=== PATIENT | male | born 1935 | race Caucasian/White ===

== ENCOUNTER 2018-02-18 09:40 | Observation (INO) ==
[2018-02-18] MEDS ORDERED: Isovue-370 500 ML INFUS..BTL IV ONE (09:51)
[2018-02-18] MEDS ORDERED: Aspirin 81 MG TAB.CHEW PO ONE (09:51)
[2018-02-18] MEDS ORDERED: 0.9 % Sodium Chloride 500 ML IVC ONE (09:51)
[2018-02-18] MEDS: Nitroglycerin 0.4 MG TAB.SUBL SL ONE ×3 (10:02→11:28)
[2018-02-18 10:44] LABS: Bilirubin,Urine Negative (Negative); Blood,Urine Negative (Negative); Clarity,Urine Clear (Clear); Color,Urine Yellow (Yellow); Glucose,Urine (UA) Normal (Normal); Ketones,Urine Negative (Negative); Leukocyte Esterase,Urine Negative (Negative); Nitrite,Urine Negative (Negative); PH,Urine 6.5 pH Units (5.0-8.0); Protein,Urine 30 mg/dL (Neg-Trace); Specific Gravity,Urine 1.023 (1.010-1.025); Urobilinogen,Urine Normal (Normal)
[2018-02-18 10:46] LABS: Bacteria,Urine None Seen per hpf (None-Few); Hyaline Casts,Urine None Seen per lpf (None-Few); RBC,Urine 0-3 per hpf (0-3); Squamous Epithelial Cell,Urine Moderate per lpf (None-Few); WBC,Urine 0-3 per hpf (0-3)
[2018-02-18 11:13] LABS: Basophils % 0.2 %; Eosinophils # 0.1 K/mcL (0.0-0.6); Hematocrit 41.7 % (37.5-50.1); Immature Granulocytes % 0.4 % (0-4); Lymphocytes % 23.1 %; Mean Corpuscular HGB Conc 33.8 g/dL (31.6-35.5); Mean Corpuscular Hemoglobin 33.6 pg (28.0-33.3); Mean Corpuscular Volume 99.3 fL (83.0-100.0); Mean Platelet Volume 9.7 fL (9.4-12.4); Monocytes # 0.4 K/mcL (0.0-1.3); Monocytes % 9.2 %; Neutrophils # 2.9 K/mcL (1.6-8.9); Platelet Count 158 K/mcL (140-400); Red Cell Distribution Width 13.1 % (11.5-14.5); Segmented Neutrophils % 65.1 %
[2018-02-18 11:14] LABS: Hemoglobin 14.1 g/dL (12.9-16.9)
--- NOTE | 2018-02-18 11:16 | Emergency Department Note ---
Disposition Clinical Impression: Chest pain Qualifiers: Chest pain type: precordial pain Qualified Code(s): R07.2 - Precordial pain Disposition: Admitted As Inpatient Condition: Fair Forms: ED Satisfaction Letter Time of Disposition: 13:05 Chest Pain HPI - General Chief Complaint: ED Chest Pain Stated Complaint: Chest Pain Time Seen by Provider: 02/18/18 09:51 Source: patient, family Mode of arrival: EMS Limitations: no limitations Vital Signs Reviewed: Yes Nursing Notes Reviewed: Yes - History of Present Illness HPI Narrative: Patient presents emergency room for evaluation of chest pain. Patient had onset of the symptoms this morning. Patient has a history of myocardial infarction illness. He is required multiple catheterizations and stents being placed in the past. Patient denies any recent falls or trauma. He has a tight sensation across his anterior chest wall. Is not identical to when he had a previous heart attacks. He was just concerned. No other acute issues noted this time. Pt complaint: chest pain Onset (ago): hour(s) Duration: constant, intermittent Onset: during rest Pain Location: substernal, left chest Severity: mild Severity scale (1-10): 1 Quality: tightness Pain Radiation: none Improves with: nothing Worsens with: nothing Treatments prior to arrival chest pain: none - Related Data Home Medications Medication Instructions Recorded Confirmed Aspirin Enteric Coated [Aspirin EC] 81 mg PO QAM 05/03/15 02/18/18 Multivit-Min/FA/Lycopen/Lutein 1 tab PO QAM 05/03/15 02/18/18 [Centrum Silver Tablet] [place]-3 Fatty Acids [Fish Oil] 2,400 mg PO BID 05/03/15 02/18/18 Garlic 1 mg PO QPM 11/23/15 02/18/18 Clopidogrel [Plavix] 75 mg PO QAM 06/03/16 02/18/18 Isosorbide MONOnitrate (24 HR) 60 mg PO BID 06/03/16 02/18/18 [Imdur] Vit C/Vit E/Lutein/Min/[place]-3 1 cap PO QPM 06/03/16 02/18/18 [Ocuvite Softgel] Oxygen 4.5 l .ROUTE AD 07/17/16 02/18/18 Docusate Sodium [Dok] 100 mg PO DAILY 04/29/17 02/18/18 Glimepiride [Amaryl] 4 mg PO BID 02/18/18 02/18/18 Metoprolol Succinate [Toprol Xl] 100 mg PO BID 02/18/18 02/18/18 Pantoprazole Sodium [Protonix] 40 mg PO DAILY 02/18/18 02/18/18 Potassium Chloride [K-Tab ER] 20 meq PO BID 02/18/18 02/18/18 Ranitidine HCl [Acid Stringed Instrument Assembler] 150 mg PO BID 02/18/18 02/18/18 Valsartan [Diovan] 160 mg PO DAILY 02/18/18 02/18/18 metFORMIN [Glucophage] 500 mg PO BIDWM 02/18/18 02/18/18 Previous Rx's Medication Instructions Recorded Sucralfate [Carafate] 1 gm PO QIDAC #20 tablet 04/08/17 Allergies Allergy/AdvReac Type Severity Reaction Status Date / Time gabapentin AdvReac See Verified 04/29/17 10:07 Comments Tzwnkrx-Kxq-Qlb Reductase AdvReac Cramping Verified 04/29/17 10:07 Inhibitor of the [HMG-Coa Reductase Muscles Inhibitors] Sulfa (Sulfonamide AdvReac See Verified 04/29/17 10:07 Antibiotics) Comments All systems ED: reviewed and negative except as stated. Review of Systems: As Per HPI Constitutional: Denies: fever, chills, weakness Cardiovascular: Reports: chest pain. Denies: palpitations, dyspnea on exertion , orthopnea Respiratory: Denies: cough, dyspnea, wheezes, sputum production Gastrointestinal: Denies: abdominal pain, nausea, diarrhea, constipation Genitourinary: Denies: urgency Musculoskeletal: Denies: back pain, neck pain Neurological: Denies: headache Endocrine: Denies: fatigue Chest Pain PMH - Past Medical History Medical history: Reports: arthritis, cancer, coronary artery disease, CVA, diabetes, GERD, hyperlipidemia, hypertension, kidney stones, myocardial infarction, peripheral artery disease, pulmonary embolus, other Surgical history: Reports: appendectomy Psychiatric history: Reports: no psych history - Social History Smoking Status: Former smoker Alcohol use: Reports: none Drug use: Reports: none Physical Exam - General Limitations: no limitations General appearance: alert, in no apparent distress - ENT ENT exam: normal exam, normal oropharynx, mucous membranes moist - Neck Neck exam: Present: normal inspection, full ROM, trachea midline - Chest Chest inspection: Present: normal inspection, symmetric chest wall rise. Absent : tenderness - Respiratory Respiratory exam: Present: normal lung sounds bilaterally. Absent: respiratory distress, wheezes, accessory muscle use - Cardiovascular Cardiovascular exam: Present: regular rate, normal rhythm, normal heart sounds - Abdominal Exam Abdominal exam: Present: soft, Non-Tender, normal bowel sounds. Absent: tenderness, distention, guarding, rebound, rigidity, Serna's sign, Rovsing's sign, tenderness at McBurney's Point - Extremities Exam Extremities exam: Present: normal inspection, full ROM, normal capillary refill. Absent: tenderness, pedal edema - Back Exam Back exam: Present: normal inspection - Neurological Exam Neurological exam: Present: alert, oriented X3, CN II-XII intact, normal gait - Skin Skin exam: Present: warm, dry, intact, normal color Course Course Narrative: Patient seen and examined the time of arrival. See history of present illness. 82-year-old male presents to the emergency room for evaluation of chest discomfort and pain. Symptoms him on to this morning. Patient has significant cardiac history with marginally 6 or 7 stents placed in the past and multiple catheterizations. Patient has nitroglycerin at home but he did not come to take it. Blood pressure was stable on presentation. Patient does have substernal chest discomfort on the left side of his chest. He describes as being slightly similar to the previous events were not exactly identical. Patient's lungs are diminished. Most certainly secondary to his sister work exposure to asbestos. Patient is currently denying shortness of breath headache vision changes nausea vomiting or diarrhea. No fevers or chills. No recent medication changes. No recent illnesses. Patient is concerning for ACS patient's history. Nitroglycerin trial will be established as well as chest x- ray EKG and troponins. Repeat EKG and troponin will be collected as needed. Patient otherwise was stabilization of his condition and disposition will be determined. Patient will need admission. Heart is otherwise regular patient has no signs of pitting edema. Is resting comfortably in the bed despite feeling discomfort in his chest wall. - Reevaluation(s) Reevaluation #1: 2 EKGs were completed that shows stable morphology compared to previous EKGs here in the emergency room. Patient has a negative troponin. Vital signs remain stable. After 3 doses of nitroglycerin the patient has no symptoms. CT angiography the chest and abdomen are still pending at this time. Patient is otherwise in no clinical distress at this point. Family is comfortable with the plan. He is currently on aspirin and Plavix at home. Aspirin was given here in the emergency room. Heparin will be held at this point considering this lowers presentation. Patient has had echo stress test completed in the past. These imaging modalities as the CT angiography is are completed Echocardiogram from 2016 as well as a stress test did not show any significant abnormality. Time: 11:45 Reevaluation #2: Hospitalist Dr. Garcia and I reviewed the case at length. No other recommendations this time. Requested not to have the patient started on heparin. Patient otherwise currently stable. Admission process will be completed this time. Patient was informed. Family comfortable time. Admission process to be completed. Time: 13:37 Vital Signs Temperature 97.6 F 02/18/18 09:44 Pulse Rate 64 02/18/18 09:44 Respiratory Rate 14 02/18/18 09:44 Blood Pressure 174/99 02/18/18 09:44 O2 Sat by Pulse Oximetry 96 02/18/18 09:44 Temperature 97.6 F 02/18/18 09:44 Pulse Rate 57 02/18/18 12:51 Respiratory Rate 18 02/18/18 12:51 Blood Pressure 152/81 02/18/18 12:51 O2 Sat by Pulse Oximetry 95 02/18/18 12:51 Oxygen Delivery Oxygen Delivery Room Air Chest Pain - MDM Narrative Medical decision making narrative: Chest pain, acute coronary syndrome rule out - Medical Records Medical records reviewed: Yes I reviewed the patient's medical records. - Lab Data Lab results reviewed: Yes I reviewed the patient's lab results. Result diagrams: 02/18/18 10:48 02/18/18 10:48 Lab Results 02/18/18 02/18/18 02/18/18 Range/Units 10:16 10:16 10:16 WBC (4.3-11.1) K/mcL RBC (4.19-5.50) M/mcL Hgb (12.9-16.9) g/dL Hct (37.5-50.1) % MCV (83.0-100.0) fL MCH (28.0-33.3) pg MCHC (31.6-35.5) g/dL RDW (11.5-14.5) % Plt Count (140-400) K/mcL MPV (9.4-12.4) fL Immature Gran % (0-4) % Seg Neutrophils % % Lymphocytes % % Monocytes % % Eosinophils % % Basophils % % Neutrophils # (1.6-8.9) K/mcL Lymphocytes # (0.6-4.6) K/mcL Monocytes # (0.0-1.3) K/mcL Eosinophils # (0.0-0.6) K/mcL Basophils # (0.0-0.2) K/mcL PT TNP INR TNP APTT TNP Sodium Cancelled Potassium Cancelled Chloride Cancelled Carbon Dioxide Cancelled BUN Cancelled Creatinine Cancelled Est GFR ( Amer) Cancelled Est GFR (Non-Af Amer) Cancelled BUN/Creatinine Ratio Cancelled Glucose Cancelled Calculated Osmolality Cancelled Calcium Cancelled Total Bilirubin (0.3-1.0) mg/dL Direct Bilirubin (0.0-0.2) mg/dL Indirect Bilirubin (0.0-1.2) mg/dL AST (13-39) Units/L ALT (7-52) Units/L Alkaline Phosphatase (34-104) Units/L Troponin I < 0.03 (< 0.04) ng/mL B-Natriuretic Peptide 48 (Less than 100) pg/mL Serum Total Protein (6.4-8.9) g/dL Albumin (3.5-5.7) g/dL Globulin (2.4-3.5) g/dL Albumin/Globulin Ratio (1.1-2.2) Lipase (11-82) Units/L Urine Color (Yellow) Urine Clarity (Clear) Urine pH (5.0-8.0) pH Units Ur Specific [place] (1.010-1.025) Urine Protein (Neg-Trace) mg/dL Urine Glucose (UA) (Normal) mg/dL Urine Ketones (Negative) mg/dL Urine Blood (Negative) Urine Nitrite (Negative) Urine Bilirubin (Negative) Urine Urobilinogen (Normal) mg/dL Ur Leukocyte Esterase (Negative) Urine Microscopic RBC (0-3) per hpf Urine Microscopic WBC (0-3) per hpf Ur Squamous Epith Cells (None-Few) per lpf Urine Bacteria (None-Few) per hpf Hyaline Casts (None-Few) per lpf Ur Culture Indicated? (NO) Specimen Rejected 02/18/18 02/18/18 02/18/18 Range/Units 10:16 10:16 10:32 WBC (4.3-11.1) K/mcL RBC (4.19-5.50) M/mcL Hgb (12.9-16.9) g/dL Hct (37.5-50.1) % MCV (83.0-100.0) fL MCH (28.0-33.3) pg MCHC (31.6-35.5) g/dL RDW (11.5-14.5) % Plt Count (140-400) K/mcL MPV (9.4-12.4) fL Immature Gran % (0-4) % Seg Neutrophils % % Lymphocytes % % Monocytes % % Eosinophils % % Basophils % % Neutrophils # (1.6-8.9) K/mcL Lymphocytes # (0.6-4.6) K/mcL Monocytes # (0.0-1.3) K/mcL Eosinophils # (0.0-0.6) K/mcL Basophils # (0.0-0.2) K/mcL PT INR APTT Sodium Potassium Chloride Carbon Dioxide BUN Creatinine Est GFR ( Amer) Est GFR (Non-Af Amer) BUN/Creatinine Ratio Glucose Calculated Osmolality Calcium Total Bilirubin (0.3-1.0) mg/dL Direct Bilirubin (0.0-0.2) mg/dL Indirect Bilirubin (0.0-1.2) mg/dL AST (13-39) Units/L ALT (7-52) Units/L Alkaline Phosphatase (34-104) Units/L Troponin I (< 0.04) ng/mL B-Natriuretic Peptide (Less than 100) pg/mL Serum Total Protein (6.4-8.9) g/dL Albumin (3.5-5.7) g/dL Globulin (2.4-3.5) g/dL Albumin/Globulin Ratio (1.1-2.2) Lipase (11-82) Units/L Urine Color Yellow (Yellow) Urine Clarity Clear (Clear) Urine pH 6.5 (5.0-8.0) pH Units Ur Specific [place] 1.023 (1.010-1.025) Urine Protein 30 H (Neg-Trace) mg/dL Urine Glucose (UA) Normal (Normal) mg/dL Urine Ketones Negative (Negative) mg/dL Urine Blood Negative (Negative) Urine Nitrite Negative (Negative) Urine Bilirubin Negative (Negative) Urine Urobilinogen Normal (Normal) mg/dL Ur Leukocyte Esterase Negative (Negative) Urine Microscopic RBC 0-3 (0-3) per hpf Urine Microscopic WBC 0-3 (0-3) per hpf Ur Squamous Epith Cells Moderate H (None-Few) per lpf Urine Bacteria None Seen (None-Few) per hpf Hyaline Casts None Seen (None-Few) per lpf Ur Culture Indicated? NO (NO) Specimen Rejected MCV [place] Contaminated 02/18/18 02/18/18 02/18/18 Range/Units 10:48 10:48 10:48 WBC 4.5 (4.3-11.1) K/mcL RBC 4.20 (4.19-5.50) M/mcL Hgb 14.1 (12.9-16.9) g/dL Hct 41.7 (37.5-50.1) % MCV 99.3 (83.0-100.0) fL MCH 33.6 H (28.0-33.3) pg MCHC 33.8 (31.6-35.5) g/dL RDW 13.1 (11.5-14.5) % Plt Count 158 (140-400) K/mcL MPV 9.7 (9.4-12.4) fL Immature Gran % 0.4 (0-4) % Seg Neutrophils % 65.1 % Lymphocytes % 23.1 % Monocytes % 9.2 % Eosinophils % 2.0 % Basophils % 0.2 % Neutrophils # 2.9 (1.6-8.9) K/mcL Lymphocytes # 1.0 (0.6-4.6) K/mcL Monocytes # 0.4 (0.0-1.3) K/mcL Eosinophils # 0.1 (0.0-0.6) K/mcL Basophils # 0.0 (0.0-0.2) K/mcL PT 13.1 H INR 1.2 APTT 28.5 Sodium 142 Potassium 4.0 Chloride 106 Carbon Dioxide 30 H BUN 12 Creatinine 0.74 Est GFR ( Amer) > 60 Est GFR (Non-Af Amer) > 60 BUN/Creatinine Ratio 16 Glucose 151 H Calculated Osmolality 297 Calcium 9.4 Total Bilirubin 0.7 (0.3-1.0) mg/dL Direct Bilirubin 0.2 (0.0-0.2) mg/dL Indirect Bilirubin 0.5 (0.0-1.2) mg/dL AST 24 (13-39) Units/L ALT 17 (7-52) Units/L Alkaline Phosphatase 43 (34-104) Units/L Troponin I (< 0.04) ng/mL B-Natriuretic Peptide (Less than 100) pg/mL Serum Total Protein 6.4 (6.4-8.9) g/dL Albumin 3.8 (3.5-5.7) g/dL Globulin 2.6 (2.4-3.5) g/dL Albumin/Globulin Ratio 1.5 (1.1-2.2) Lipase 20 (11-82) Units/L Urine Color (Yellow) Urine Clarity (Clear) Urine pH (5.0-8.0) pH Units Ur Specific [place] (1.010-1.025) Urine Protein (Neg-Trace) mg/dL Urine Glucose (UA) (Normal) mg/dL Urine Ketones (Negative) mg/dL Urine Blood (Negative) Urine Nitrite (Negative) Urine Bilirubin (Negative) Urine Urobilinogen (Normal) mg/dL Ur Leukocyte Esterase (Negative) Urine Microscopic RBC (0-3) per hpf Urine Microscopic WBC (0-3) per hpf Ur Squamous Epith Cells (None-Few) per lpf Urine Bacteria (None-Few) per hpf Hyaline Casts (None-Few) per lpf Ur Culture Indicated? (NO) Specimen Rejected - Radiology Data Radiology results reviewed: Yes I reviewed the patient's radiology results. Chest x-ray is unremarkable. CT angiography of the chest and abdomen is stable presentation with presentation of asbestosis. No other acute issues noted this time. - EKG Data EKG attestation: Yes I reviewed and interpreted this EKG. EKG results narrative: EKG #1 Patient has sinus arrhythmia. Ventricular rate is 62. SD interval appears to be stable. QRS duration of 119. QTC of 357. [place] appears to be leftward deviated. No acute signs of ST segment elevation or myocardial infarction. No acute signs of WPW or Brugada syndrome. EKG was read as atrial fibrillation the patient has clearly discernible P waves were 4 QRS complexes. EKG #2 Sinus rhythm with ventricular rate of 61. SD interval of 219. First-degree heart block noted. SD interval. QRS duration 94. QTC of 398. [place] appears to be leftward deviated. Sinus arrhythmia still noted on evaluation. No acute signs of myocardial infarction or abnormality. Both EKGs were compared firm [facility] reviewed comparison 14/05/18. Heart Score - Score History: Moderately Suspicious EKG: Non Specific repolarisation Disturbance Age: Greater than 65 Risk Factors: Equal/Greater than 3 risk factor or history of atherosclerotic disease Troponin: Less than normal limit HEART Score Total: 6
[2018-02-18 11:35] LABS: Activated Partial Thrombo Time 28.5 Seconds (26.0-36.0); INR 1.2; Prothrombin Time 13.1 Seconds (9.4-12.1)
[2018-02-18 11:37] LABS: Alanine Aminotransferase 17 Units/L (7-52); Albumin 3.8 g/dL (3.5-5.7); Albumin/Globulin Ratio 1.5 (1.1-2.2); Alkaline Phosphatase 43 Units/L (34-104); Aspartate Amino Transferase 24 Units/L (13-39); BUN/Creatinine Ratio 16 (6-26); Bilirubin,Direct 0.2 mg/dL (0.0-0.2); Bilirubin,Indirect 0.5 mg/dL (0.0-1.2); Bilirubin,Total 0.7 mg/dL (0.3-1.0); Blood Urea Nitrogen 12 mg/dL (8-23); Calcium 9.4 mg/dL (8.6-10.3); Carbon Dioxide 30 mEq/L (23-29); Chloride 106 mEq/L (98-107); Globulin 2.6 g/dL (2.4-3.5); Glucose 151 mg/dL (70-105); Lipase 20 Units/L (11-82); Osmolality,Calculated 297 (280-300); Sodium 142 mEq/L (136-145); Total Protein 6.4 g/dL (6.4-8.9); eGFR For African Americans > 60 (> 60); eGFR For Non-African Americans > 60 (> 60)
[2018-02-18] MEDS ORDERED: Naloxone 0.4 MG/ML INJ IVP PRN (14:00)
[2018-02-18] MEDS ORDERED: D5% in Water 1,000 ML IVC PRN (14:02)
[2018-02-18] MEDS ORDERED: *HR* Dextrose 50 % in Water (Syg) 50 ML SYRINGE IVP PRN (14:02)
[2018-02-18] MEDS ORDERED: Dextrose Gel 15 GM/37.5 ML TUBE PO PRN ×2 (14:02)
[2018-02-18] MEDS ORDERED: Nitroglycerin 0.4 MG TAB.SUBL SL PRN (14:02)
[2018-02-18] MEDS ORDERED: OXYGEN SCH (14:15)
--- NOTE | 2018-02-18 14:15 | Internal Med History&Physical ---
Date of Encounter: 02/18/18 Time of Encounter: 13:50 Internal Medicine - H&P: HPI Chief complaint: chest pain Admitted From: Home Plans for Post Hospital Care: Home History of present illness: Mr. Doherty is a 82 year old male with extensive PMH including CAD, s/p CABG, HTN , HLD, DM, GERD who presents to the ER with acute onset of left sided chest pain starting this morning. Pain is localized to the left chest wall and pressure like, reports of associated diaphoresis. States he cannot recall if this pain is similar to the pain he had during his last AK. He received three doses of SL nitro in the ER with complete resolution of his chest pain. Currently he is sitting comfortably in bed and reports of being hungry. Denies any falls or trauma. Denies any headache, shortness of breath, abd pain, n/v, fever, or chills at this time. I had a conversation with the patient and POA present at bedside. Pt wishes to be full code. Past Med Surg Social Fam HX - Past Medical History Medical history: arthritis, cancer, coronary artery disease, CVA, diabetes, GERD , hyperlipidemia, hypertension, kidney stones, myocardial infarction, peripheral artery disease, pulmonary embolus Psychiatric history: no psych history - Past Surgical History Surgical History: appendectomy - Social History Smoking Status: Former smoker Smokeless Tobacco Status: No Alcohol use: none Drug use: none - Family History Mother Adopted: No Family Member Ethnicity: Non- Living Status: Hx Family Cardiac Disorders: Yes (HTN) Hx Family Respiratory Disorders: No Hx Family Cancer: No Hx Family GI Disorders: No Hx Family Endocrine Disorder: Yes (DM) Hx Family Neuromuscular Disorders: No Hx Family Neurologic Disorders: No Hx Family HEENT Disorders: No Hx Family Autoimmune Disorders: No Internal Medicine - H&P: Meds Aspirin Enteric Coated [Aspirin EC] 81 mg PO QAM 05/03/15 [History] Multivit-Min/FA/Lycopen/Lutein [Centrum Silver Tablet] 1 tab PO QAM 05/03/15 [ History] [place]-3 Fatty Acids [Fish Oil] 2,400 mg PO BID 05/03/15 [History] Garlic 1 mg PO QPM 11/23/15 [History] Clopidogrel [Plavix] 75 mg PO QAM 06/03/16 [History] Isosorbide MONOnitrate (24 HR) [Imdur] 60 mg PO BID 06/03/16 [History] Vit C/Vit E/[place]/Min/[place]-3 [Ocuvite Softgel] 1 cap PO QPM 06/03/16 [History] Oxygen 4.5 l .ROUTE AD 07/17/16 [History] Sucralfate [Carafate] 1 gm PO QIDAC #20 tablet 04/08/17 [Rx] Docusate Sodium [Dok] 100 mg PO DAILY 04/29/17 [History] Glimepiride [Amaryl] 4 mg PO BID 02/18/18 [History] Metoprolol Succinate [Toprol Xl] 100 mg PO BID 02/18/18 [History] Pantoprazole Sodium [Protonix] 40 mg PO DAILY 02/18/18 [History] Potassium Chloride [K-Tab ER] 20 meq PO BID 02/18/18 [History] Ranitidine HCl [Acid Medical Sales Consultant] 150 mg PO BID 02/18/18 [History] Valsartan [Diovan] 160 mg PO DAILY 02/18/18 [History] metFORMIN [Glucophage] 500 mg PO BIDWM 02/18/18 [History] 3 Allergy/AdvReac Type Severity Reaction Status Date / Time gabapentin AdvReac See Verified 04/29/17 10:07 Comments Awnsgsl-Ykx-Gxk Reductase AdvReac Cramping Verified 04/29/17 10:07 Inhibitor of the [HMG-Coa Reductase Muscles Inhibitors] Sulfa (Sulfonamide AdvReac See Verified 04/29/17 10:07 Antibiotics) Comments All Systems PM: A 10-system review of systems was performed and is negative for pertinent findings except as documented above in the HPI. - Constitutional Constitutional: as per HPI - Constitutional Vitals: Temp Pulse Resp BP Pulse Ox 97.6 F 58 12 152/84 95 02/18/18 09:44 02/18/18 13:58 02/18/18 14:06 02/18/18 14:06 02/18/18 13:58 General appearance: Present: cooperative, A&O X 3, no acute distress, answers questions appropriately - Head Head exam: Present: atraumatic, normocephalic - Eye Eye exam: Present: conjuntiva pink, sclera anicteric - Respiratory Respiratory exam: Present: CTAB. Absent: respiratory distress, wheezes - Cardiovascular Cardiovascular exam: Present: RRR, +S1, +S2. Absent: diastolic murmur, gallop, rubs, systolic murmur - GI/Abdominal GI/Abdominal exam: Present: normal bowel sounds, soft, no peritoneal signs. Absent: distended, tenderness - Extremities Exam Extremities exam: Present: warm, radial pulses palpable and symmetrical. Absent : calf tenderness, pedal edema - Neurological Exam Neurological exam: Present: oriented X3, no focal deficits - Psychiatric Psychiatric exam: Present: normal affect, normal mood Internal Med - H&P Results - Labs CBC & Chem 7: 02/18/18 10:48 02/18/18 10:48 - Assessment and plan (1) Chest pain Current Visit: Yes Status: Acute Assessment and plan: Given history and risk factors, will admit to rule out ACS f/u serial TNI no EKG changes reported at this time received ASA in the ER nuclear stress test in am f/u 2D echo, last 2D echo from 11/09/15 reported LVEF of 60-65%, mild LV diastolic dysfunction f/u repeat 2D echo nitro SL PRN chest pain consider cardiology evaluation if the above tests are abnormal continue tele monitoring O2 supplementation (reported history of pt being on 4L NC at home) Qualifiers: Chest pain type: unspecified Qualified Code(s): R07.9 - Chest pain, unspecified (2) CAD (coronary artery disease) Current Visit: Yes Status: Chronic Assessment and plan: chest pain resolved at this time will schedule for Nuclear stress test in am continue home dose of ASA, Plavix, BB Qualifiers: Coronary Disease-Associated Artery/Lesion type: unspecified vessel or lesion type [place] vs. transplanted heart: [place] heart Associated angina: angina presence unspecified Qualified Code(s): I25.10 - Atherosclerotic heart disease of [place] coronary artery without angina pectoris (3) HTN (hypertension) Current Visit: Yes Status: Chronic Assessment and plan: BP within acceptable range continue home meds Qualifiers: Hypertension type: essential hypertension Qualified Code(s): I10 - Essential (primary) hypertension (4) Diabetes mellitus Current Visit: Yes Status: Acute Assessment and plan: hold oral antihyperglycemic agents at this time sliding scale insulin algorithm monitor FS and BG ADA diet Qualifiers: Diabetes mellitus type: type 2 Diabetes mellitus shelter insulin use: without carbon plant grinder use Diabetes mellitus complication status: with unspecified complications Qualified Code(s): E11.8 - Type 2 diabetes mellitus with unspecified complications (5) GERD (gastroesophageal reflux disease) Current Visit: Yes Status: Chronic Assessment and plan: continue home meds Qualifiers: Esophagitis presence: esophagitis presence not specified Qualified Code(s) : K21.9 - Gastro-esophageal reflux disease without esophagitis (6) DVT prophylaxis Current Visit: No Status: Acute Assessment and plan: heparin SQ - Time Spent With Patient Total time spent is greater than 50% in coordination of care (as documented) at patient's floor/unit and/or counseling patient:
--- NOTE | 2018-02-18 16:53 | Electrocardiograph Report ---
[place] [address] Test Date: 2018-02-18 Pat Name: Cody Doherty Department: 102 Room: 2A32 Gender: M Home Mortgage Disclosure Act Specialist: Cailin : 1935 Requested By: Juan Mai Order Number: [id number] Reading MD: Bell Franks Measurements Intervals [place] Rate: 62 P: [place]: 0 QRS: -20 QRSD: 119 T: 7 QT: 352 QTc: 357 Interpretive Statements BASELINE ARTIFACT - PROBABLY NSR INTRAVENTRICULAR CONDUCTION DELAY [110+ ms QRS DURATION] VOLTAGE CRITERIA FOR LVH [MEETS CRITERIA IN ONE OF: R(aVL), S(V1), R(V5), R(V5/V6) +S(V1)] Electronically Signed On 02-18-2018 16:52:23 EDT by Bell Franks
[2018-02-18] MEDS: Sucralfate 1 GM TABLET PO SCH ×2 (17:01→21:54)
[2018-02-18] MEDS: *HR* Heparin 5,000 UNIT/ML VIAL SQ SCH (17:01)
[2018-02-18] MEDS ORDERED: NON-FORMULARY MEDICATION 1 EACH EACH (Vit C/Vit E/Lutein/Min/Omega-3 [Ocuvite Softgel] 1 C PO SCH (18:00)
[2018-02-18] MEDS ORDERED: GARLIC 1 MG PO SCH (18:00)
[2018-02-18] MEDS ORDERED: FATTY ACIDS PO SCH (21:00)
[2018-02-18] MEDS ORDERED: Insulin LISPRO 300 UNITS/3 ML VIAL SQ SCH (21:00)
[2018-02-18] MEDS ORDERED: OMEGA PO SCH (21:00)
[2018-02-18] MEDS: Metoprolol XL (24 HR) Succ 50 MG TAB.ER.24H PO SCH (21:54)
[2018-02-18] MEDS: Famotidine 20 MG TABLET PO SCH (21:54)
[2018-02-18] MEDS: Isosorbide MONOnitrate (24 HR) 60 MG TAB.ER.24H PO SCH (21:54)
[2018-02-19] MEDS: Insulin LISPRO 300 UNITS/3 ML VIAL SQ SCH ×2 (00:49→05:36)
[2018-02-19] MEDS ORDERED: Regadenoson 0.4 MG/5 ML SYRINGE IVP ONE (05:31)
[2018-02-19] MEDS: *HR* Heparin 5,000 UNIT/ML VIAL SQ SCH (05:42)
[2018-02-19 06:17] LABS: Basophils % 0.5 %; Eosinophils # 0.2 K/mcL (0.0-0.6); Eosinophils % 4.8 %; Hematocrit 41.9 % (37.5-50.1); Immature Granulocytes % 0.2 % (0-4); Lymphocytes # 1.2 K/mcL (0.6-4.6); Lymphocytes % 27.9 %; Mean Corpuscular HGB Conc 33.4 g/dL (31.6-35.5); Mean Corpuscular Hemoglobin 32.6 pg (28.0-33.3); Mean Corpuscular Volume 97.7 fL (83.0-100.0); Mean Platelet Volume 9.3 fL (9.4-12.4); Monocytes # 0.5 K/mcL (0.0-1.3); Monocytes % 11.5 %; Neutrophils # 2.4 K/mcL (1.6-8.9); Platelet Count 147 K/mcL (140-400); Red Blood Count 4.29 M/mcL (4.19-5.50); Red Cell Distribution Width 12.9 % (11.5-14.5); Segmented Neutrophils % 55.1 %
[2018-02-19 06:35] LABS: BUN/Creatinine Ratio 15 (6-26); Blood Urea Nitrogen 11 mg/dL (8-23); Calcium 9.3 mg/dL (8.6-10.3); Carbon Dioxide 29 mEq/L (23-29); Chloride 104 mEq/L (98-107); Chol/HDL Ratio 5.5 (0-4.9); Cholesterol 177 mg/dL (< 200); Glucose 101 mg/dL (70-105); HDL Cholesterol 32 mg/dL (40-59); LDL Cholesterol,Calculated 114 mg/dL (0-99); Magnesium 1.7 mg/dL (1.6-2.6); Osmolality,Calculated 290 (280-300); Potassium 3.6 mEq/L (3.5-5.1); Sodium 140 mEq/L (136-145); Triglycerides 156 mg/dL (< 150); eGFR For African Americans > 60 (> 60); eGFR For Non-African Americans > 60 (> 60)
--- NOTE | 2018-02-19 07:17 | Electrocardiograph Report ---
[place] [email or web address] Test Date: 2018-02-18 Pat Name: Cody Doherty Department: 102 Room: 2A32 Gender: M Clinical Analyst: Am : 1935 Requested By: Juan Mai Order Number: [id number] Reading MD: Hector Dickerson Measurements Intervals [place] Rate: 61 P: 62 ME: 219 QRS: -26 QRSD: 94 T: -7 QT: 394 QTc: 398 Interpretive Statements SINUS RHYTHM WITH MARKED SINUS ARRHYTHMIA WITH FIRST DEGREE AV BLOCK BORDERLINE LEFT AXIS DEVIATION [QRS AXIS < -20] VOLTAGE CRITERIA FOR LVH [MEETS CRITERIA IN ONE OF: R(aVL), S(V1), R(V5), R(V5/V6) +S(V1)] Electronically Signed On 02-19-2018 7:15:12 EDT by Hector Dickerson
[2018-02-19] MEDS ORDERED: Aspirin Enteric Coated 81 MG Tablet PO SCH (09:00)
[2018-02-19] MEDS ORDERED: Valsartan 160 MG TABLET PO SCH (09:00)
[2018-02-19] MEDS ORDERED: Multivit/Ca/Min/Fe/FA 1 TAB TABLET PO SCH (09:00)
[2018-02-19 09:29] LABS: INR 1.2; Prothrombin Time 12.7 Seconds (9.4-12.1)
[2018-02-19] MEDS: Sucralfate 1 GM TABLET PO SCH ×2 (10:21→10:25)
[2018-02-19] MEDS: Famotidine 20 MG TABLET PO SCH (10:25)
[2018-02-19] MEDS: Metoprolol XL (24 HR) Succ 50 MG TAB.ER.24H PO SCH (10:25)
[2018-02-19] MEDS: Isosorbide MONOnitrate (24 HR) 60 MG TAB.ER.24H PO SCH (10:25)
[2018-02-19 11:40] VITALS: BP 148/67
[2018-02-19] MEDS ORDERED: Insulin LISPRO 300 UNITS/3 ML VIAL SQ SCH ×2 (13:30→21:00)
--- NOTE | 2018-02-19 15:24 | Discharge Summary ---
- NOTES TO OUTPATIENT PROVIDER Notes to Outpatient Provider: None Orders not resulted at time of discharge: Pending orders 02/18/18 14:03 NM yakelin perf SPECT multi [NM] Routine Date of Encounter: 02/19/18 Time of Encounter: 11:00 - Discharge Diagnosis (1) Chest pain Priority: Primary Status: Acute Qualifiers: Chest pain type: unspecified Qualified Code(s): R07.9 - Chest pain, unspecified (2) HTN (hypertension) Priority: Secondary Status: Chronic Qualifiers: Hypertension type: essential hypertension Qualified Code(s): I10 - Essential (primary) hypertension (3) Diabetes mellitus Priority: Secondary Status: Acute Qualifiers: Diabetes mellitus type: type 2 Diabetes mellitus half-way insulin use: without half-way use Diabetes mellitus complication status: with unspecified complications Qualified Code(s): E11.8 - Type 2 diabetes mellitus with unspecified complications (4) GERD (gastroesophageal reflux disease) Priority: Secondary Status: Chronic Qualifiers: Esophagitis presence: esophagitis presence not specified Qualified Code(s) : K21.9 - Gastro-esophageal reflux disease without esophagitis (5) CAD (coronary artery disease) Priority: Secondary Status: Chronic Qualifiers: Coronary Disease-Associated Artery/Lesion type: unspecified vessel or lesion type [place] vs. transplanted heart: [place] heart Associated angina: angina presence unspecified Qualified Code(s): I25.10 - Atherosclerotic heart disease of [place] coronary artery without angina pectoris Hospital course: Patient is an 82-year-old male with past medical history significant for CAD, s/ p CABG, HTN, HLD, DM, GERD who presents to the ER on 02/18/18 with chest pain. Patient reported of acute onset of left sided chest pain starting the morning of admission. Pain was localized to the left chest wall and pressure like, reports of associated diaphoresis. States he cannot recall if this pain is similar to the pain he had during his last [place]. He received three doses of SL nitro in the ER with complete resolution of his chest pain. Patient was admitted to medical surgical floor for ACS rule out. During patients hospital stay, his cardiac biomarkers were negative and nuclear medicine stress test was negative for anemia. Patient will be discharged with home health care and to follow-up with primary care provider. - Time Spent with Patient Total time spent providing and/or coordinating discharge services: - Discharge Medications Home Medications: Aspirin Enteric Coated [Aspirin EC] 81 mg PO QAM 05/03/15 [History] Multivit-Min/FA/Lycopen/Lutein [Centrum Silver Tablet] 1 tab PO QAM 05/03/15 [ History] [place]-3 Fatty Acids [Fish Oil] 2,400 mg PO BID 05/03/15 [History] Garlic 1 mg PO QPM 11/23/15 [History] Clopidogrel [Plavix] 75 mg PO QAM 06/03/16 [History] Isosorbide MONOnitrate (24 HR) [Imdur] 60 mg PO BID 06/03/16 [History] Vit C/Vit E/Lutein/Min/[place]-3 [Ocuvite Softgel] 1 cap PO QPM 06/03/16 [History] Oxygen 4.5 l .ROUTE AD 07/17/16 [History] Sucralfate [Carafate] 1 gm PO QIDAC #20 tablet 04/08/17 [Rx] Docusate Sodium [Dok] 100 mg PO DAILY 04/29/17 [History] Glimepiride [Amaryl] 4 mg PO BID 02/18/18 [History] Metoprolol Succinate [Toprol Xl] 100 mg PO BID 02/18/18 [History] Pantoprazole Sodium [Protonix] 40 mg PO DAILY 02/18/18 [History] Potassium Chloride [K-Tab ER] 20 meq PO BID 02/18/18 [History] Ranitidine HCl [Acid Chief [employer] Shelter] 150 mg PO BID 02/18/18 [History] Valsartan [Diovan] 160 mg PO DAILY 02/18/18 [History] metFORMIN [Glucophage] 500 mg PO BIDWM 02/18/18 [History] Allergies/Adverse Reactions: 3 Allergy/AdvReac Type Severity Reaction Status Date / Time gabapentin AdvReac See Verified 04/29/17 10:07 Comments Zhapsuc-Lqd-Gow Reductase AdvReac Cramping Verified 04/29/17 10:07 Inhibitor of the [HMG-Coa Reductase Muscles Inhibitors] Sulfa (Sulfonamide AdvReac See Verified 04/29/17 10:07 Antibiotics) Comments Date of admission: 02/18/18 13:56 Primary care physician: Madi Hernandez Jr, MD - Constitutional Vitals: Temp Pulse Resp BP Pulse Ox 98.3 F 74 18 148/67 95 02/19/18 11:39 02/19/18 11:39 02/19/18 11:39 02/19/18 11:39 02/19/18 11:39 General appearance: Present: cooperative, A&O X 3, no acute distress, answers questions appropriately - Respiratory Respiratory exam: Present: CTAB. Absent: accessory muscle use, rales, rhonchi, wheezes - Cardiovascular Cardiovascular exam: Present: RRR, +S1, +S2. Absent: diastolic murmur, gallop, rubs, systolic murmur - Patient Status Disposition: Home Health Service Condition: Fair - Discharge Instructions Instructions: Chest Pain (DC), Chronic Hypertension (DC) Follow Up With: Madi Hernandez Jr, MD [Primary Care Provider] - (web request sent 02/19/18) Keshav Lechuga MD [Partnered Physician] - 02/28/18 3:00 pm
--- NOTE | 2018-02-19 15:26 | Physician Discharge Referral ---
Home Health/Hosp Referral Info Transfer to: Home Health - Diagnosis (1) DVT prophylaxis Status: Acute (2) Chest pain Status: Acute (3) HTN (hypertension) Status: Chronic (4) Diabetes mellitus Status: Acute (5) GERD (gastroesophageal reflux disease) Status: Chronic (6) CAD (coronary artery disease) Status: Chronic - Respiratory Orders Smoking Cessation: Smoking cessation has been advised. For more information, call the [place] Tobacco Quit Line at 2-975-ZPEJ-NOW. - Services Needed Following services are medically necessary services: Nursing, Home Health Aide - Transfer Medications Home Medications: Aspirin Enteric Coated [Aspirin EC] 81 mg PO QAM 05/03/15 [History] Multivit-Min/FA/Lycopen/Lutein [Centrum Silver Tablet] 1 tab PO QAM 05/03/15 [ History] [place]-3 Fatty Acids [Fish Oil] 2,400 mg PO BID 05/03/15 [History] Garlic 1 mg PO QPM 11/23/15 [History] Clopidogrel [Plavix] 75 mg PO QAM 06/03/16 [History] Isosorbide MONOnitrate (24 HR) [Imdur] 60 mg PO BID 06/03/16 [History] Vit C/Vit E/Lutein/Min/[place]-3 [Ocuvite Softgel] 1 cap PO QPM 06/03/16 [History] Oxygen 4.5 l .ROUTE AD 07/17/16 [History] Sucralfate [Carafate] 1 gm PO QIDAC #20 tablet 04/08/17 [Rx] Docusate Sodium [Dok] 100 mg PO DAILY 04/29/17 [History] Glimepiride [Amaryl] 4 mg PO BID 02/18/18 [History] Metoprolol Succinate [Toprol Xl] 100 mg PO BID 02/18/18 [History] Pantoprazole Sodium [Protonix] 40 mg PO DAILY 02/18/18 [History] Potassium Chloride [K-Tab ER] 20 meq PO BID 02/18/18 [History] Ranitidine HCl [Acid Chemistry Quality Control Analyst] 150 mg PO BID 02/18/18 [History] Valsartan [Diovan] 160 mg PO DAILY 02/18/18 [History] metFORMIN [Glucophage] 500 mg PO BIDWM 02/18/18 [History] Allergies/Adverse Reactions: 3 Allergy/AdvReac Type Severity Reaction Status Date / Time gabapentin AdvReac See Verified 04/29/17 10:07 Comments [place]-Nzy-Mpl Reductase AdvReac Cramping Verified 04/29/17 10:07 Inhibitor of the [HMG-Coa Reductase Muscles Inhibitors] Sulfa (Sulfonamide AdvReac See Verified 04/29/17 10:07 Antibiotics) Comments Certification: Further, I certify that my clinical findings support that this patient is homebound (i.e. absences from home require considerable and taxing effort and are for medical reasons or shinto services or infrequently or short duration when for other reasons) because: Homebound Reason: Patient requires assistance of a person or device to safely leave home Attestation: My signature below is to certify that this patient is under my care and that I, or nurse practitioner, or a physician's assistant scientist working with me, has a face-to -face encounter with this patient.
== END 2018-02-19 16:05 | disposition home health service (06) ==
LOC: 2ANU 09:40 → EMEROO 09:40 → SUATTDRO 13:56 → 2ANU 14:14
PROVIDERS: ADMIT Internal Medicine; ATTEND Hospitalist